=== PATIENT | male | born 1955 | race Caucasian/White ===

== ENCOUNTER → 2017-10-20 08:11 | Outpatient (CLI) | payer BC, SELFPAY ==
[2017-10-20 09:27] LABS: Add Manual Diff / Slide Review NO; Basophils Percent Auto 1.4 % (0-2); Eosinophils Percent Auto 6.3 % (2-4); Hematocrit 46.4 % (41-53); Hemoglobin 15.9 g/dL (13.5-17.5); Mean Corpuscular HGB Conc 34.2 % (30-36); Mean Corpuscular Hemoglobin 30.6 PG (26-34); Mean Corpuscular Volume 89.3 fL (80-100); Monocytes Percent Auto 10.1 % (3-14); Neutrophils Absolute Auto 2900 /uL (3000-5900); Neutrophils Percent Auto 50.2 % (50-75); Platelet Count 211 X10^3/uL (150-400); Red Blood Cell Count 5.19 X10^6/uL (4.5-5.9); Red Cell Distribution Width 12.6 % (11.6-14.8); White Blood Cell Count 5.7 X10^3/uL (4.5-11.0)
[2017-10-20 09:49] LABS: Alanine Aminotransferase 27 IU/L (21-72); Albumin 4.2 g/dL (3.5-5.0); Albumin Globulin Ratio 1.3 (1.0-2.8); Alkaline Phosphatase 55 U/L (38-126); Aspartate Aminotransferase 25 IU/L (17-59); BUN Creatinine Ratio 13.3 (6-22); Bilirubin Total 0.6 mg/dL (0.2-1.3); Calcium 9.4 mg/dL (8.4-10.2); Cholesterol 210 mg/dL (140-199); Estimated Glomerular Filt Rate > 60.0 mL/min (>60); Globulin 3.2 g/dL (1.7-4.1); Glucose 97 mg/dL (80-110); HDL Cholesterol 41 mg/dL (40-60); HEMOLYSIS < 15 (0-50); LDL Cholesterol Calculated 144 mg/dL (<100); Potassium 4.4 mmol/L (3.4-5.1); Sodium 144 mmol/L (137-145); Total Protein 7.4 g/dL (6.3-8.2); Triglycerides 124 mg/dL (35-150)
[2017-10-20 10:14] LABS: Prostate Specific Antigen Scrn 1.66 ng/mL (0.1-4.0)
[2017-10-20 10:39] LABS: TSH w/ Reflex to FT4 3.79 uIU/mL (0.47-4.68)
== END ==
PROVIDERS: PCP Internal Medicine; Visit Provider Internal Medicine
DX: E78.5 Hyperlipidemia, unspecified (principal); N40.0 Benign prostatic hyperplasia without lower urinary tract symptoms; Z12.5 Encounter for screening for malignant neoplasm of prostate; N52.9 Male erectile dysfunction, unspecified
CPT/HCPCS: 36415; 80053; 80061; 84443; 85025; G0103

== ENCOUNTER → 2018-01-16 07:22 | Outpatient (CLI) | payer BC, MEDICARE, SELFPAY ==
[2018-01-16 08:23] LABS: Alanine Aminotransferase 29 IU/L (21-72); Aspartate Aminotransferase 27 IU/L (17-59); Cholesterol 199 mg/dL (140-199); HDL Cholesterol 44 mg/dL (40-60); LDL Cholesterol Calculated 127 mg/dL (<100); Triglycerides 141 mg/dL (35-150)
== END ==
PROVIDERS: Family Provider Internal Medicine; PCP Internal Medicine; Visit Provider Internal Medicine
DX: E78.5 Hyperlipidemia, unspecified (principal)
CPT/HCPCS: 36415; 80061; 84450; 84460

== ENCOUNTER → 2019-02-15 10:53 | Outpatient (CLI) | payer MEDICARE, OTHER, SELFPAY ==
--- NOTE | 2019-03-12 16:15 | P.HOLT.S_ITS ---
Review Scheduling Coordinator Report Referral & Results Date Patient Seen: 02/15/19 Requesting provider: Glenys Dacosta Indication: Palpitations Duration of monitoring (days): 14 Diary information: There were no patient diary entries or patient triggered events identified Data: Minimum heart rate identified was 40 beats per minute at 02:01 on 02/27/2019 Maximum sinus heart rate was 146 beats per minute at 14:54 on 02/19/2019 Maximum overall heart rate was 182 beats per minute at 19:11 on 02/25/2019 during a 5 beat run of SVT Less than 1% of identified beats were either ventricular or supraventricular ectopic in origin There were 5 runs of supraventricular tachycardia or atrial tachycardia the longest of which was 7 beats at a rate of 143 beats per minute suggesting more atrial tachycardia than SVT Impression: No clear etiology for palpitations defined on this study Occasional bursts of supraventricular dysrhythmia as above Clinical correlation suggested
== END ==
PROVIDERS: Family Provider Internal Medicine; PCP Internal Medicine; Visit Provider Internal Medicine
DX: R00.2 Palpitations (principal)
CPT/HCPCS: 0296T; 0298T

== ENCOUNTER 2019-05-13 13:40 | Day surgery (SDC) | payer MEDICARE, OTHER, SELFPAY ==
[2019-05-13 14:09] VITALS: BP 141/99; PULSE 69; RESP 16; TEMP 36.1; O2SAT 95; BMI 26.4
[2019-05-13] MEDS: SODIUM CHLORIDE 0.9% 1,000 ML 200 ML IV (14:21)
--- NOTE | 2019-05-13 14:24 | PM.HP.1 ---
History of Present Illness History of Present Illness Date Patient Seen: 05/13/19 Time Patient Seen: 14:24 Chief complaint: [id number] Colonoscopy Narrative: Patient presents for colorectal screening. They had a prior colonoscopy 5 years ago that was significant for adenomatous polyps.. No personal or family history of colon cancer. On further history denies any recent gastrointestinal symptoms. No nausea, vomiting, abdominal pain, loss of appetite, unexplained weight loss, change in bowel habits, diarrhea, constipation, melena, hematochezia, or bright red blood per rectum. Patient History Medical History Chicken pox (Resolved) Chronic back pain (Chronic ~1999) Colon polyps (Chronic) Foot pain (Chronic ~2003) Hearing loss (Chronic ~2003) Seasonal allergies (Chronic) Snoring (Chronic) Tinnitus (Chronic ~2007) Surgical History Anesthesia (Resolved) Status post knee surgery (~1988) Family & Social History Family History Father Diabetes mellitus Congestive heart failure Mother Age: 89 Hypertension Social History: household members spouse,friend(s) Tobacco & Substance use: Smoking Status Former smoker Meds Home Medications and Allergies Home Medications Medication Instructions Recorded Confirmed Type Fish Oil (#FISH OIL) 1 iu PO Q DAY #0 01/21/11 02/24/19 History ASPIRIN (#ASPIRIN E.C.) 325 mg PO #0 10/14/11 02/24/19 History sildenafil 100 mg tablet 100 mg PO ONCE #10 tab 10/21/17 02/24/19 Rx tamsulosin 0.4 mg capsule 0.4 mg PO DAILY #90 cap 03/04/18 02/24/19 Rx zolpidem 10 mg tablet 10 mg PO ONCE #1 tab 02/24/19 02/24/19 Rx Allergies Allergy/AdvReac Type Severity Reaction Status Date / Time atorvastatin [ATORVASTATIN] Allergy Unknown Verified 05/13/19 13:55 ANTIHISTAMINE DRUG Allergy Mild Uncoded 05/13/19 13:55 Review of Systems Review of Systems Narrative: A complete review of systems is negative except as noted in the HPI Exam Vital Signs (past 8 hours): - 05/13/19 14:09 Temperature 96.9 F L Pulse Rate 69 Respiratory Rate 16 Blood Pressure 141/99 H Pulse Oximetry 95 Oxygen Delivery Method Room Air Narrative Exam Narrative: General-no acute distress, well nourished HEENT-moist mucous membranes, no scleral icterus Neck-supple, no lymphadenopathy Chest- non labored respirations, clear to auscultation bilaterally Cardiac-regular rate no peripheral edema Abdomen-soft, nontender, non distended Extremities-warm, well perfused Neurological-alert and oriented, no focal deficits Assessment & Plan Assessment & Plan narrative: The patient requires colorectal screening and colonoscopy is recommended. Technical details were discussed. Risks, benefits, alternatives explained. Risks including but not limited to myocardial infarction, aspiration, bleeding, pain, missed lesion, incomplete examination, need for further radiographic studies, colonic perforation, and need for major abdominal surgery were discussed. All questions were answered to their satisfaction, and they are in agreement with this plan.
[2019-05-13] MEDS: fentaNYL 250 MCG/5 ML INJ IV (14:25)
[2019-05-13] MEDS: MIDAZOLAM 5 MG/5 ML VIAL IV (14:25)
--- NOTE | 2019-05-13 14:54 | PM.OP.ENDO ---
Operative Date/Time/Diagnoses Date of procedure: 05/13/19 Time of procedure: 14:54 Pre-op diagnosis: Screening colonoscopy Post-op diagnosis: same Procedure & Clinicians Study performed: Colonoscopy Same procedure as scheduled: Yes Indications: This is a 64-year-old male with a history of adenomatous polyps last colonoscopy 5 years ago presents for routine screening. Surgeon: Frank Whitt Procedure Notes SCOAP/Timeout: Performed Procedure in detail: Patient placed in left lateral decubitus position. Time out was performed. Procedural sedation was administered with Versed and Fentanyl. A rectal exam demonstrated no external hemorrhoids no internal masses. Colonoscopy scope was placed into the rectum and advanced through the colon to the cecum. The ileocecal valve was identified. The scope was then slowly withdrawn examining colon thoroughly in all directions. The colonoscopy was notable for the following 1. Sigmoid diverticulosis 2. Grade 1 internal hemorrhoids 3. Quality of prep moderate Scope withdrawal time: 6 Sedation minutes: 16 Findings: diverticulosis and internal hemorrhoids Specimen(s): none sent Complications: none Impression: Diverticulosis Post-procedure Recommendations: Colonscopy in 10 years Disposition: same day surgery
[2019-05-13 14:59] VITALS: BP 138/81; PULSE 69; RESP 11; TEMP 37.2; O2SAT 96
[2019-05-13 15:04] VITALS: BP 133/82; PULSE 73; RESP 21; O2SAT 94
[2019-05-13 15:09] VITALS: BP 123/76; PULSE 70; RESP 14; TEMP 36.5; O2SAT 96
[2019-05-13 15:23] VITALS: BP 123/79; PULSE 61; RESP 16; TEMP 36.4; O2SAT 97
== END 2019-05-13 15:32 | disposition home or self-care (01) ==
PROVIDERS: PCP Internal Medicine; Visit Provider Surgery
PROC: 0DJD8ZZ Inspection of Lower Intestinal Tract, Via Natural or Artificial Opening Endoscopic (ICD-10-PCS; CPT 45378; principal; 2019-05-13 14:45)
DX: Z12.11 Encounter for screening for malignant neoplasm of colon (principal); Z86.010 Personal history of colon polyps; K57.30 Diverticulosis of large intestine without perforation or abscess without bleeding; K64.0 First degree hemorrhoids
CPT/HCPCS: G0105; 99152; J2250; J3010

== ENCOUNTER → 2020-03-16 12:45 | Outpatient (CLI) | payer MEDICARE, OTHER, SELFPAY ==
--- NOTE | 2020-03-16 | DI.MRI.S_ITS ---
PROCEDURE: MR KNEE LT WO CON INDICATIONS: LEFT KNEE PAIN TECHNIQUE: Noncontrast sagittal PD fast spin echo and T2 fast spin echo with fat saturation, sagittal 3-D FLASH with fat saturation; coronal T1 spin echo and PD fast spin echo with fat saturation, and axial PD fast spin echo with fat saturation through the knee. COMPARISON: [facility] [place], [place], XR KNEE [facility] LT, 03/09/2020, 13:42. FINDINGS: Image quality: Excellent. Menisci: There is amorphous and linear high signal intensity within the medial meniscal body and posterior horn, demonstrating inferior articular surface extension. Vague linear oblique high signal intensity traverses the posterior horn lateral meniscus, demonstrating inferior articular surface extension, indicating subtle oblique tearing. Cruciate ligaments: The anterior cruciate ligament graft and posterior cruciate ligaments appear intact. Medial structures: The medial collateral ligament appears intact. Visualized portions of the pes anserinus tendons appear normal. No abnormal bursal fluid. Lateral structures: The lateral collateral ligament demonstrates mild T2 signal elevation at the femoral origin. The long and short heads of the biceps femoris tendon appear intact. The popliteus tendon appears normal. Iliotibial band appears normal. Anterior structures: The quadriceps and patellar tendons appear intact. Moderate T2 signal elevation within the patellar tendon at the patellar insertion. Moderate T2 signal elevation within the quadriceps tendon at the patellar insertion site. Patellar alignment is normal. No femoral trochlear dysplasia or ventral trochlear prominence. No edema in the infrapatellar fat pad. Bones and cartilage: No bone marrow contusions or fractures. Ligamentous anchors within the distal femur and proximal tibia. Moderate degenerative marrow edema within the posterior weight-bearing aspect of the medial tibial plateau. Subchondral cysts with mild surrounding degenerative marrow edema within the patellar apex. Moderate tricompartmental periarticular osteophyte formation. Moderate articular cartilage loss diffusely overlies the weight-bearing aspects of the medial femoral condyle and medial tibial plateau. Mild articular cartilage loss overlies the weight-bearing aspects of the lateral femoral condyle and lateral tibial plateau. Moderate articular cartilage loss overlies the medial and lateral patellar facets with superimposed high-grade articular cartilage loss overlying the patellar apex. Joint space: There is physiologic knee joint fluid. No Diaz's cyst. Normal appearing synovial plicae are incidentally noted. IMPRESSION: 1. Medial and lateral meniscal tearing. 2. Tricompartmental osteoarthritis with associated articular cartilage loss. 3. Intact ACL graft. 4. Quadriceps tendinopathy. 5. Patellar tendinitis. 6. Low-grade partial thickness lateral collateral ligament tear. Dictated by: Rosi Walden M.D. on 03/16/2020 at 14:02 Approved by: Rosi Walden M.D. on 03/16/2020 at 14:12
== END ==
PROVIDERS: PCP Internal Medicine; Referring Provider Internal Medicine; Visit Provider Orthopaedic Surgery
DX: S83.282A Other tear of lateral meniscus, current injury, left knee, initial encounter (principal); S83.242A Other tear of medial meniscus, current injury, left knee, initial encounter; M17.12 Unilateral primary osteoarthritis, left knee; M76.52 Patellar tendinitis, left knee
CPT/HCPCS: 73721

== ENCOUNTER 2020-04-20 12:07 | Emergency (ER) | payer MEDICARE, OTHER, SELFPAY ==
[2020-04-20 12:22] VITALS: BP 130/85; PULSE 82; RESP 14; O2SAT 96; BMI 27.5
--- NOTE | 2020-04-20 12:40 | ED.SYNCOPE ---
HPI - Syncope <MALIA Paige - Last Filed: 04/20/20 16:08> General Chief Complaint: Syncope Stated Complaint: Bleeding head wound x1 hour Time Seen by Provider: 04/20/20 12:21 Source: patient Mode of arrival: Ambulatory Limitations: no limitations History of Present Illness HPI narrative: The patient is a 65-year-old male former smoker with high cholesterol who presents with a chief complaint of a ground level fall/syncope. He states he got out of his hot tub this morning and felt very woozy and was at least pre syncopal if not syncopal. However he thinks he remembers everything, states his vision was normal. He fell, hitting his head on cement he states he has a laceration to the back of his head. Does not know when previous tetanus was. He states he has gotten woozy before getting out of the hot tub. He denies any neck or back pain. Denies any chest pain or shortness of breath. States that this has happened before while getting out of of the hot tub. Has not started any new medications. Related Data Home Medications Medication Instructions Recorded Confirmed Fish Oil (#FISH OIL) 1 iu PO Q DAY #0 01/21/11 02/24/19 ASPIRIN (#ASPIRIN E.C.) 325 mg PO #0 10/14/11 02/24/19 Previous Rx's Medication Instructions Recorded sildenafil 100 mg tablet 100 mg PO ONCE #10 tab 10/21/17 tamsulosin 0.4 mg capsule 0.4 mg PO DAILY #90 cap 03/04/18 zolpidem 10 mg tablet 10 mg PO ONCE #1 tab 02/24/19 Allergies Allergy/AdvReac Type Severity Reaction Status Date / Time atorvastatin [ATORVASTATIN] Allergy Unknown Verified 04/20/20 12:22 ANTIHISTAMINE DRUG Allergy Mild Uncoded 05/13/19 13:55 Review of Systems <MALIA Paige - Last Filed: 04/20/20 16:08> Review of Systems Narrative: GENERAL: Denies chills, fatigue, malaise, fever, sweats. HEENT: Denies sinus pain, ear pain, sore throat, difficulty swallowing, dizziness. RESPIRATORY: Denies dyspnea, cough, wheezing, hemoptysis, sputum. CARDIOVASCULAR: See HPI GASTROINTESTINAL: Denies nausea, vomiting, abdominal pain, diarrhea, constipation, melena. : Denies dysuria, frequency, incontinence, hematuria, urinary retention. MUSCULOSKELETAL: denies weakness, joint pain, or bony pain SKIN: See HPI NEUROLOGIC: See HPI PSYCHIATRIC: No concerning psychosocial issues. 12 point review of systems is negative except for those stated above Patient History <MLAIA Paige - Last Filed: 04/20/20 16:08> Medical History Chicken pox Chronic back pain (~1999) Colon polyps Foot pain (~2003) Hearing loss (~2003) Obstructive sleep apnea Seasonal allergies Snoring Tinnitus (~2007) Surgical History Anesthesia Status post knee surgery (~1988) Family History Father Diabetes mellitus Congestive heart failure Mother Age: 90 Hypertension Social History household members: spouse and friend(s) Smoking Status: Former smoker Smoking Status: Former smoker alcohol intake frequency: holidays/special occasions only Substance Use Type: does not use Exam <MALIA Paige - Last Filed: 04/20/20 16:08> Narrative Exam Narrative: GENERAL: This is a well-nourished, well-developed patient, in no acute distress HEAD: Atraumatic. Normocephalic. No temporal or scalp tenderness. EYES: Pupils equal round and reactive. Extraocular motions intact. No scleral icterus. No injection or drainage. ENT: Nose without bleeding, purulent drainage or septal hematoma. Wearing a mask. Airway patent. NECK: Trachea midline. No JVD or lymphadenopathy. Supple, nontender, no meningeal signs. CARDIOVASCULAR: Regular rate and rhythm RESPIRATORY: Clear to auscultation. Breath sounds equal bilaterally. No wheezes, rales, or rhonchi. No cough. No increased respiratory effort. No accessory muscle use GASTROINTESTINAL: Abdomen soft, non-tender, nondistended. No hepato-splenomegaly, or palpable masses. No guarding. EXTREMITIES: No clubbing, cyanosis, or edema. No joint tenderness, effusion, or edema noted. BACK: CT and L-spine aren ontender without deformity or crepitance. No flank tenderness. No palpable step-offs or deformities. NEURO: AOx3. SKIN: 5 cm linear laceration noted on back of head. Oozing blood. No obvious muscle or tendon involvement. No periorbital ecchymosis. No Carmona signs Initial Vital Signs Initial Vital Signs: Vital Signs Pulse Rate 82 04/20/20 12:22 Respiratory Rate 14 04/20/20 12:22 Blood Pressure 130/85 04/20/20 12:22 Pulse Oximetry 96 04/20/20 12:22 <Dayanara Truong DO - Last Filed: 04/21/20 07:21> Initial Vital Signs Initial Vital Signs: Vital Signs Pulse Rate 82 04/20/20 12:22 Respiratory Rate 14 04/20/20 12:22 Blood Pressure 130/85 04/20/20 12:22 Pulse Oximetry 96 04/20/20 12:22 Procedures <MALIA Paige - Last Filed: 04/20/20 16:08> Laceration Repair Laceration 1: Site: scalp Size (cm): 4 Description: linear Depth: simple, single layer Local Anesthetic: other anesthetic (Lidocaine cream) Pre-repair: wound explored, irrigated extensively (Flushed with sterile saline, cleansed with Hibiclens) and deep structures intact Skin layer closed with: isis (6) Scores <MALIA Paige - Last Filed: 04/20/20 16:08> [place] CT Head Rule Age <16 years old: No Patient on blood thinners: No Seizure after injury: No Exclusion: Patient NOT Excluded, Proceed to next steps GCS < 15 at 2 hr post trauma: No Suspected open or depressed skull fracture: No Any sign of basilar skull fracture (hemotympanum, raccoon eyes, Carmona's sign, CSF jer-/rhinorrhea): No Two or more episodes of vomiting: No Age greater or equal to 65 years: Yes Retrograde amnesia to the event greater or equal to 30 min: No Dangerous Mechanism (pedestrian vs. mv, occupant ejected from mv, fall from >3 ft or > 5 stairs): No Recommendation: Consider CT. The [place] Head CT Rule cannot rule out need for Imaging. GCS Soo coma scale eye opening: Spontaneous [place] coma scale verbal response: Orientated Soo coma scale motor response: Obey commands [place] coma scale total score: 15 Nexus Score for C-Spine Focal Neurologic deficit present: No Midline spinal tenderness present: No Altered level of conciousness present: No Intoxication present: No Distracting Injury Present: No Nexus Criteria for C-spine: 0 Course <Ksenia FerraraJANIEP-BC - Last Filed: 04/20/20 16:08> Orders Ordered: Discontinued Medications Bacitracin (Bacitracin Oint 0.9 Gm Pckt) 1 applic TOP NOW ONE Stop: 04/20/20 15:03 Last Admin: 04/20/20 15:17 Dose: 1 applic Documented by: BREANA Diphtheria/Tetanus/Acell Pertussis (Tet,Diph,Pertuss(Acell),Vac/Pf 0.5 Ml Syringe) 0.5 ml IM .ONCE ONE Stop: 04/20/20 13:01 Last Admin: 04/20/20 14:18 Dose: 0.5 ml Documented by: BREANA Sodium Chloride (Normal Saline 0.9%) 1,000 mls @ 150 mls/hr IV CONT ADENIKE Sodium Chloride (Normal Saline 0.9%) 1,000 mls @ 1,000 mls/hr IV BOLUS PRN PRN Reason: Fluid replacement Last Admin: 04/20/20 13:59 Dose: 1,000 mls/hr Documented by: ADRIAN Lidocaine/Prilocaine (Lidocaine/Prilocaine 5 Gm) 5 gm TOP NOW ONE Stop: 04/20/20 13:01 Last Admin: 04/20/20 14:18 Dose: 5 gm Documented by: BREANA Vital Signs Vital signs: Vital Signs - 8 hr 04/20/20 12:22 04/20/20 13:09 04/20/20 14:38 Pulse Rate 82 70 57 L Pulse Rate [Orthostatic Lying] Pulse Rate [Orthostatic Sitting] Pulse Rate [Orthostatic Standing] Respiratory Rate 14 22 17 Blood Pressure 130/85 124/81 124/82 Blood Pressure [Orthostatic Lying] Blood Pressure [Orthostatic Sitting] Blood Pressure [Orthostatic Standing] Pulse Oximetry 96 97 97 04/20/20 15:02 04/20/20 15:20 Pulse Rate 52 L Pulse Rate [Orthostatic Lying] 55 L Pulse Rate [Orthostatic Sitting] 71 Pulse Rate [Orthostatic Standing] 64 Respiratory Rate 18 Blood Pressure 131/81 Blood Pressure [Orthostatic Lying] 131/78 Blood Pressure [Orthostatic Sitting] 127/81 Blood Pressure [Orthostatic Standing] 147/90 H Pulse Oximetry 99 <Dayanara Truong DO - Last Filed: 04/21/20 07:21> Orders Ordered: Discontinued Medications Bacitracin (Bacitracin Oint 0.9 Gm Pckt) 1 applic TOP NOW ONE Stop: 04/20/20 15:03 Last Admin: 04/20/20 15:17 Dose: 1 applic Documented by: BREANA Diphtheria/Tetanus/Acell Pertussis (Tet,Diph,Pertuss(Acell),Vac/Pf 0.5 Ml Syringe) 0.5 ml IM .ONCE ONE Stop: 04/20/20 13:01 Last Admin: 04/20/20 14:18 Dose: 0.5 ml Documented by: BREANA Sodium Chloride (Normal Saline 0.9%) 1,000 mls @ 150 mls/hr IV CONT ADENIKE Sodium Chloride (Normal Saline 0.9%) 1,000 mls @ 1,000 mls/hr IV BOLUS PRN PRN Reason: Fluid replacement Last Admin: 04/20/20 13:59 Dose: 1,000 mls/hr Documented by: ADRIAN Lidocaine/Prilocaine (Lidocaine/Prilocaine 5 Gm) 5 gm TOP NOW ONE Stop: 04/20/20 13:01 Last Admin: 04/20/20 14:18 Dose: 5 gm Documented by: BREANA Vital Signs Vital signs: Vital Signs - 8 hr 04/20/20 12:22 04/20/20 13:09 04/20/20 14:38 Pulse Rate 82 70 57 L Pulse Rate [Orthostatic Lying] Pulse Rate [Orthostatic Sitting] Pulse Rate [Orthostatic Standing] Respiratory Rate 14 22 17 Blood Pressure 130/85 124/81 124/82 Blood Pressure [Orthostatic Lying] Blood Pressure [Orthostatic Sitting] Blood Pressure [Orthostatic Standing] Pulse Oximetry 96 97 97 04/20/20 15:02 04/20/20 15:20 Pulse Rate 52 L Pulse Rate [Orthostatic Lying] 55 L Pulse Rate [Orthostatic Sitting] 71 Pulse Rate [Orthostatic Standing] 64 Respiratory Rate 18 Blood Pressure 131/81 Blood Pressure [Orthostatic Lying] 131/78 Blood Pressure [Orthostatic Sitting] 127/81 Blood Pressure [Orthostatic Standing] 147/90 H Pulse Oximetry 99 MDM - Syncope <Ksenia FerraraJANIEP- - Last Filed: 04/20/20 16:08> Lab Data Attestation: I reviewed the patient's lab results. Result diagrams: 04/20/20 13:17 04/20/20 13:17 Labs: Lab Results 04/20/20 04/20/20 Range/Units 13:17 13:17 WBC 10.0 (4.5-11.0) X10^3/uL RBC 4.92 (4.5-5.9) X10^6/uL Hgb 14.7 (13.5-17.5) g/dL Hct 44.0 (41-53) % MCV 89.4 (80-100) fL MCH 30.0 (26-34) PG MCHC 33.5 (30-36) % RDW 12.4 (11.6-14.8) % Plt Count 271 (150-400) X10^3/uL Neut % (Auto) 78.3 H (50-75) % Lymph % (Auto) 9.8 L (25-40) % [place] % (Auto) 7.9 (3-14) % Eos % (Auto) 3.3 (2-4) % Baso % (Auto) 0.7 (0-2) % Neut # (Auto) 7800 H (4075-4143) /uL Lymph # (Auto) 1000 L (1724-8534) /uL [place] # (Auto) 800 (0-900) /uL Eos # (Auto) 300 (0-450) /uL Baso # (Auto) 100 (0-100) /uL Sodium 137 (137-145) mmol/L Potassium 4.3 (3.4-5.1) mmol/L Chloride 106 (98-107) mmol/L Carbon Dioxide 27 (22-32) mmol/L BUN 19 (9-20) mg/dL Creatinine 0.82 (0.66-1.25) mg/dL Estimated GFR > 60.0 (>60) mL/min BUN/Creatinine Ratio 23.2 H (6-22) Glucose 120 H (80-110) mg/dL Calcium 9.4 (8.4-10.2) mg/dL Total Bilirubin 0.5 (0.2-1.3) mg/dL AST 32 (17-59) IU/L ALT 31 (<50) IU/L Alkaline Phosphatase 71 (38-126) U/L Total Creatine Kinase 48 L (55-170) U/L CK-MB (CK-2) TNP CK-MB (CK-2) Rel Index TNP Troponin I < 0.012 (0.01-0.034) ng/mL Total Protein 7.4 (6.3-8.2) g/dL Albumin 4.0 (3.5-5.0) g/dL Globulin 3.4 (1.7-4.1) g/dL Albumin/Globulin Ratio 1.2 (1.0-2.8) Point of Care Testing Glucose POC 122 Urine Dip Bedside Urine Glucose Negative Bedside Urine Bilirubin - Negative Bedside Urine Ketone - Negative Urine Specific [place] 1.030 Bedside Urine Occult Blood - Negative Bedside Urine pH 6.0 Bedside Urine Protein - Negative Bedside Urine Urobilinogen - Negative Bedside Urine Nitrite - Negative Bedside Urine Leukocytes - Negative Esterase Imaging Data CT scan - head: Radiologist's Impression: [address] [place] [id number] Scan ReportSigned Patient: Abimael Pedro WMR#: [id number]: 1955cct:[id number]/Sex: 65 / MDate of Service: 04/20/20Loc: EDAccession Number: [id number] Procedure: CT head/brain wo con Ordering Provider: Ksenia Ferrara [facility] PROCEDURE: CT HEAD/BRAIN WO CON INDICATIONS: glf/ ? loc TECHNIQUE: Noncontrast 4.5 mm thick angled axial sections acquired from the foramen magnum to the vertex, with coronal and sagittal reformats. For radiation dose reduction, the following was used: automated exposure control, adjustment of mA and/or kV according to patient size. COMPARISON: None. FINDINGS: Image quality: Excellent. CSF spaces: Basal cisterns are patent. A posterior fossa arachnoid cyst can be seen posteriorly. The ventricles are symmetric in size and shape. Brain: No intracranial bleeds or masses. There is cerebral volume loss for age, with resultant ventricular and sulcal prominence. There are periventricular and deep white matter chronic small vessel ischemic changes. There is intracranial internal carotid artery atherosclerosis. Skull and face: Soft tissue right parietal laceration can be seen, with a scalp hematoma. No underlying calvarial fracture can be seen. Calvarium and visualized facial bones appear intact, without suspicious lesions. Sinuses: Visualized sinuses and mastoids are clear. IMPRESSION: There is a right parietal scalp hematoma with laceration. No associated fracture can be seen. No acute intracranial hemorrhage is seen. Posterior fossa arachnoid cyst incidentally noted. Dictated by: Petr Frey M.D. on 04/20/2020 at 12:05 Approved by: Petr Frey M.D. on 04/20/2020 at 12:06 Chest x-ray: Radiologist's Impression: [address] [place] [id number] ReportSigned Patient: Abimael Pedro WMR#: [id number]: 3Acct:[id number]/Sex: 65 / MDate of Service: 04/20/20Loc: EDAccession Number: [id number] Procedure: XR chest 1V Ordering Provider: Ksenia Ferrara PROCEDURE: XR CHEST 1V INDICATIONS: glf, syncope TECHNIQUE: One view of the chest was acquired. COMPARISON: [facility], XR CXR 2 VIEW, 06/20/1992, 4:12. FINDINGS: Surgical changes and devices: None. Lungs and pleura: Lungs are clear. No pleural effusions or pneumothorax. Mediastinum: Mediastinal contours appear normal. Heart size is normal. Bones and chest wall: No suspicious bony lesions. Overlying soft tissues appear unremarkable. IMPRESSION: No acute cardiopulmonary disease process. Dictated by: Ria Blackwell MD, PhD on 04/20/2020 at 13:32 Approved by: Ria Blackwell MD, PhD on 04/20/2020 at 13:33 ECG Data Attestation: I personally reviewed and interpreted this ECG as follows: Interpretation: Sinus rhythm. Ventricular rate 69. P.r. interval 188. QRS 96.viewed by Dr Alexi BLOOD Narrative Medical decision making narrative: The patient is a 65-year-old male with a syncopal event after getting out of a hot tub. He has normal EKG, negative troponin, negative head CT. He is not orthostatic. Is able to ambulate, and is requesting to go home after his laceration was repaired as per procedural note. Patient tolerated isis well. Discussed at length monitoring for signs symptoms of infection, follow-up with primary care provider, follow-up with staple removal. Discussed not putting head into dirty water. Discussed going back to ER for acute concerns. Discussed possibility of 2nd troponin, though patient would rather leave and denies any chest pain or shortness of breath. Patient has no questions or concerns upon discharge and states understanding return precautions as well as follow-up care. <Dayanara Truong, DO - Last Filed: 04/21/20 07:21> Lab Data Labs: Lab Results 04/20/20 04/20/20 Range/Units 13:17 13:17 WBC 10.0 (4.5-11.0) X10^3/uL RBC 4.92 (4.5-5.9) X10^6/uL Hgb 14.7 (13.5-17.5) g/dL Hct 44.0 (41-53) % MCV 89.4 (80-100) fL MCH 30.0 (26-34) PG MCHC 33.5 (30-36) % RDW 12.4 (11.6-14.8) % Plt Count 271 (150-400) X10^3/uL Neut % (Auto) 78.3 H (50-75) % Lymph % (Auto) 9.8 L (25-40) % [place] % (Auto) 7.9 (3-14) % Eos % (Auto) 3.3 (2-4) % Baso % (Auto) 0.7 (0-2) % Neut # (Auto) 7800 H (0061-4254) /uL Lymph # (Auto) 1000 L (6284-8679) /uL [place] # (Auto) 800 (0-900) /uL Eos # (Auto) 300 (0-450) /uL Baso # (Auto) 100 (0-100) /uL Sodium 137 (137-145) mmol/L Potassium 4.3 (3.4-5.1) mmol/L Chloride 106 (98-107) mmol/L Carbon Dioxide 27 (22-32) mmol/L BUN 19 (9-20) mg/dL Creatinine 0.82 (0.66-1.25) mg/dL Estimated GFR > 60.0 (>60) mL/min BUN/Creatinine Ratio 23.2 H (6-22) Glucose 120 H (80-110) mg/dL Calcium 9.4 (8.4-10.2) mg/dL Total Bilirubin 0.5 (0.2-1.3) mg/dL AST 32 (17-59) IU/L ALT 31 (<50) IU/L Alkaline Phosphatase 71 (38-126) U/L Total Creatine Kinase 48 L (55-170) U/L CK-MB (CK-2) TNP CK-MB (CK-2) Rel Index TNP Troponin I < 0.012 (0.01-0.034) ng/mL Total Protein 7.4 (6.3-8.2) g/dL Albumin 4.0 (3.5-5.0) g/dL Globulin 3.4 (1.7-4.1) g/dL Albumin/Globulin Ratio 1.2 (1.0-2.8) Point of Care Testing Glucose POC 122 Urine Dip Bedside Urine Glucose Negative Bedside Urine Bilirubin - Negative Bedside Urine Ketone - Negative Urine Specific [place] 1.030 Bedside Urine Occult Blood - Negative Bedside Urine pH 6.0 Bedside Urine Protein - Negative Bedside Urine Urobilinogen - Negative Bedside Urine Nitrite - Negative Bedside Urine Leukocytes - Negative Esterase Discharge Plan Departure Patient Disposition: Home Clinical Impression: Laceration Syncope Qualifiers: Syncope type: unspecified Qualified Code(s): R55 - Syncope and collapse Instructions: DI for Syncope in Adults (Fainting), DI for Laceration Repair -- [place] Activity Restrictions/Additional Instructions: A thank you for trusting us with your care today. Your evaluation came back well in the emergency department. As discussed, please follow-up with primary care provider in the next few days. Please follow-up for staple removal in about 10 days. Please monitor for signs and symptoms of infection such as extending redness and purulent drainage. Please do not put your head into dirty water. Please do not use your hot tub. Today I believe it is likely that you got lightheaded getting out of the hot tub due to the vasodilation effects of the hot tub. Please do not get back in the hot tub until you follow-up with primary care provider. Please rest and push fluids. As discussed, please come back to the ER for any acute concerns Prescriptions: No Action Fish Oil (#FISH OIL) 1 iu PO Q DAY Qty: 0 RF: 0 ASPIRIN (#ASPIRIN E.C.) 325 mg PO Qty: 0 RF: 0 tamsulosin [Flomax] 0.4 mg capsule 0.4 mg PO DAILY Qty: 90 RF: 3 sildenafil 100 mg tablet 100 mg PO ONCE Qty: 10 RF: 0 zolpidem 10 mg tablet 10 mg PO ONCE Qty: 1 RF: 0 Referrals: Glenys Dacosta ARNP [Primary Care Provider] - <Dayanara Truong DO - Last Filed: 04/21/20 07:21> Cosign ED Attending Cosignature Attestation: I was immediately available in the department for consultation. Documentation has been reviewed. I agree with assessment and plan.
--- NOTE | 2020-04-20 12:43 | DI.RAD.S_ITS ---
PROCEDURE: XR CHEST 1V INDICATIONS: glf, syncope TECHNIQUE: One view of the chest was acquired. COMPARISON: [facility], [place], XR CXR 2 VIEW, 06/20/1992, 4:12. FINDINGS: Surgical changes and devices: None. Lungs and pleura: Lungs are clear. No pleural effusions or pneumothorax. Mediastinum: Mediastinal contours appear normal. Heart size is normal. Bones and chest wall: No suspicious bony lesions. Overlying soft tissues appear unremarkable. IMPRESSION: No acute cardiopulmonary disease process. Dictated by: Ria Blackwell MD, PhD on 04/20/2020 at 13:32 Approved by: Ria Blackwell MD, PhD on 04/20/2020 at 13:33
--- NOTE | 2020-04-20 12:52 | DI.CT.S_ITS ---
PROCEDURE: CT HEAD/BRAIN WO CON INDICATIONS: glf/ ? loc TECHNIQUE: Noncontrast 4.5 mm thick angled axial sections acquired from the foramen magnum to the vertex, with coronal and sagittal reformats. For radiation dose reduction, the following was used: automated exposure control, adjustment of mA and/or kV according to patient size. COMPARISON: None. FINDINGS: Image quality: Excellent. CSF spaces: Basal cisterns are patent. A posterior fossa arachnoid cyst can be seen posteriorly. The ventricles are symmetric in size and shape. Brain: No intracranial bleeds or masses. There is cerebral volume loss for age, with resultant ventricular and sulcal prominence. There are periventricular and deep white matter chronic small vessel ischemic changes. There is intracranial internal carotid artery atherosclerosis. Skull and face: Soft tissue right parietal laceration can be seen, with a scalp hematoma. No underlying calvarial fracture can be seen. Calvarium and visualized facial bones appear intact, without suspicious lesions. Sinuses: Visualized sinuses and mastoids are clear. IMPRESSION: There is a right parietal scalp hematoma with laceration. No associated fracture can be seen. No acute intracranial hemorrhage is seen. Posterior fossa arachnoid cyst incidentally noted. Dictated by: Petr Frey M.D. on 04/20/2020 at 12:05 Approved by: Petr Frey M.D. on 04/20/2020 at 12:06
[2020-04-20 13:09] VITALS: BP 124/81; PULSE 70; RESP 22; O2SAT 97
[2020-04-20 13:25] LABS: Add Manual Diff / Slide Review NO; Basophils Absolute Auto 100 /uL (0-100); Basophils Percent Auto 0.7 % (0-2); Eosinophils Absolute Auto 300 /uL (0-450); Eosinophils Percent Auto 3.3 % (2-4); Hemoglobin 14.7 g/dL (13.5-17.5); Lymphocytes Absolute Auto 1000 /uL (1100-4500); Lymphocytes Percent Auto 9.8 % (25-40); Mean Corpuscular HGB Conc 33.5 % (30-36); Mean Corpuscular Volume 89.4 fL (80-100); Monocytes Absolute Auto 800 /uL (0-900); Monocytes Percent Auto 7.9 % (3-14); Neutrophils Absolute Auto 7800 /uL (1500-7000); Neutrophils Percent Auto 78.3 % (50-75); Platelet Count 271 X10^3/uL (150-400); Red Blood Cell Count 4.92 X10^6/uL (4.5-5.9); Red Cell Distribution Width 12.4 % (11.6-14.8)
[2020-04-20 13:38] LABS: Alanine Aminotransferase 31 IU/L (<50); Albumin Globulin Ratio 1.2 (1.0-2.8); Alkaline Phosphatase 71 U/L (38-126); Aspartate Aminotransferase 32 IU/L (17-59); BUN Creatinine Ratio 23.2 (6-22); Bilirubin Total 0.5 mg/dL (0.2-1.3); Blood Urea Nitrogen 19 mg/dL (9-20); Calcium 9.4 mg/dL (8.4-10.2); Carbon Dioxide 27 mmol/L (22-32); Chloride 106 mmol/L (98-107); Creatine Kinase 48 U/L (55-170); Estimated Glomerular Filt Rate > 60.0 mL/min (>60); Globulin 3.4 g/dL (1.7-4.1); Glucose 120 mg/dL (80-110); HEMOLYSIS < 15 (0-50); Potassium 4.3 mmol/L (3.4-5.1); Sodium 137 mmol/L (137-145); Total Protein 7.4 g/dL (6.3-8.2)
[2020-04-20 13:49] LABS: Troponin I < 0.012 ng/mL (0.01-0.034)
[2020-04-20] MEDS: SODIUM CHLORIDE 0.9% 1,000 ML 1000 ML IV (13:59)
[2020-04-20] MEDS: LIDOCAINE/PRILOCAINE 5 GM TOP (14:18)
[2020-04-20] MEDS: TET,DIPH,PERTUSS(ACELL),VAC/PF 0.5 ML SYRINGE IM (14:18)
[2020-04-20 14:38] VITALS: BP 124/82; PULSE 57; RESP 17; O2SAT 97
[2020-04-20 15:02] VITALS: BP 127/81; BP 131/78; BP 147/90; PULSE 55; PULSE 64; PULSE 71
[2020-04-20] MEDS: BACITRACIN OINT 0.9 GM PCKT 1 APPLIC TOP (15:17)
[2020-04-20 15:20] VITALS: BP 131/81; PULSE 52; RESP 18; O2SAT 99
--- NOTE | 2020-05-04 14:38 | PC.NURSE ---
IV NS stopped and completed at 1530.
== END 2020-04-20 15:31 | disposition home or self-care (01) ==
PROVIDERS: Emergency Provider Nurse Practitioner Family; PCP Internal Medicine
DX: S01.01XA Laceration without foreign body of scalp, initial encounter (principal); R55 Syncope and collapse; W19.XXXA Unspecified fall, initial encounter; Z23 Encounter for immunization; R07.9 Chest pain, unspecified
CPT/HCPCS: 12002; 36415; 70450; 71045; 80053; 81003; 82550; 82962; 84484; 85025; 90471; 93005; 96360; 96361; 99283; 99284; STOP; 90715

== ENCOUNTER → 2020-05-04 09:21 | Outpatient (CLI) | payer MEDICARE, OTHER, SELFPAY ==
[2020-05-04 11:21] LABS: Alanine Aminotransferase 46 IU/L (<50); Albumin 3.9 g/dL (3.5-5.0); Albumin Globulin Ratio 1.3 (1.0-2.8); Alkaline Phosphatase 94 U/L (38-126); Aspartate Aminotransferase 38 IU/L (17-59); BUN Creatinine Ratio 22.7 (6-22); Bilirubin Total 0.5 mg/dL (0.2-1.3); Blood Urea Nitrogen 20 mg/dL (9-20); Calcium 9.3 mg/dL (8.4-10.2); Carbon Dioxide 31 mmol/L (22-32); Chloride 103 mmol/L (98-107); Cholesterol 184 mg/dL (140-199); Estimated Glomerular Filt Rate > 60.0 mL/min (>60); Globulin 3.1 g/dL (1.7-4.1); Glucose 91 mg/dL (80-110); HDL Cholesterol 39 mg/dL (40-60); HEMOLYSIS < 15 (0-50); LDL Cholesterol Calculated 123 mg/dL (<100); Potassium 4.5 mmol/L (3.4-5.1); Sodium 137 mmol/L (137-145); Triglycerides 108 mg/dL (35-150); VLDL Cholesterol Calculated 22 mg/dL (2-30)
[2020-05-04 11:43] LABS: Prostate Specific Antigen Scrn 1.38 ng/mL (0.1-4.0)
[2020-05-04 11:44] LABS: Thyroid Stimulating Hormone 3.06 uIU/mL (0.47-4.68)
[2020-05-04 12:02] LABS: Hep C Virus Ab w/Reflex Quant NEGATIVE s/c (NEGATIVE)
== END ==
PROVIDERS: PCP Internal Medicine; Referring Provider Internal Medicine; Visit Provider Internal Medicine
DX: Z79.899 Other long term (current) drug therapy (principal); E78.5 Hyperlipidemia, unspecified; Z11.59 Encounter for screening for other viral diseases; Z13.29 Encounter for screening for other suspected endocrine disorder; Z12.5 Encounter for screening for malignant neoplasm of prostate
CPT/HCPCS: 36415; 80053; 80061; 84443; 86803; G0103

== ENCOUNTER → 2020-07-12 09:39 | Outpatient (CLI) | payer MEDICARE, OTHER, SELFPAY ==
[2020-07-12 11:04] LABS: COVID19 -Nasal RAPID Negative (Negative)
== END ==
PROVIDERS: PCP Internal Medicine; Visit Provider Physician Assistant
DX: Z01.812 Encounter for preprocedural laboratory examination (principal); Z20.822 Contact with and (suspected) exposure to COVID-19
CPT/HCPCS: 87635; C9803

== ENCOUNTER → 2020-07-14 15:08 | Outpatient (CLI) | payer MEDICARE, OTHER, SELFPAY ==
--- NOTE | 2020-07-14 15:49 | PM.TREADMILL ---
Cardiac Stress Test Report Referral & Results Date Patient Seen: 07/14/20 Time Patient Seen: 15:49 Requesting provider: Glenys Dacosta Indication: palpitations, chest pain Rest ECG: sinus rhythm with nonspecific ST changes Procedure Note: Standard German protocol, 9:10, 9.9 METS Good exercise capacity, PATRICIA -20% Normal hemodynamic response to exercise No chest pain or anginal symptoms No significant ST changes at peak exercise No ectopy Impression: Normal exercise stress test Please note: Actual ECG tracings can be found in the PACS system.
--- NOTE | 2020-07-14 17:35 | DI.NM.S_ITS ---
DATE OF SERVICE: 07/14/2020 PROCEDURE PERFORMED: Exercise treadmill nonimaging stress test. ORDERING PROVIDER: APURVA Jacobson. INDICATIONS: The patient is a 65-year-old male with palpitations and atypical chest pain. FINDINGS: 1. The patient was able to exercise for 9 minutes and 10 seconds on a standard German protocol suggesting very good exercise capacity with an PATRICIA of -20%, achieving 10.1 METS. 2. The patient had a normal heart rate and blood pressure response to exercise, achieving a maximum heart rate of 146 BPM (95% of his predicted maximum). 3. He had no chest discomfort or anginal symptoms. 4. His resting ECG shows sinus rhythm with normal ST segments. There were no significant ST-segment shifts or arrhythmias. IMPRESSION: 1. Normal exercise treadmill study with no ECG evidence for ischemia. 2. Very good exercise capacity without angina or arrhythmias. MayelaAbimael lane - DANIELLE/prabha/sb doc#: [id number]/job#: [id number] dd: 07/14/2020 17:10:00 dt: 07/14/2020 17:29:00 DICTATING /COPIES TO: Kris Caruso MD COPIES MNE: CARTER;
== END ==
PROVIDERS: PCP Internal Medicine; Referring Provider Internal Medicine; Visit Provider Internal Medicine
DX: R07.89 Other chest pain (principal); R00.2 Palpitations; E78.5 Hyperlipidemia, unspecified; Z87.898 Personal history of other specified conditions
CPT/HCPCS: 93017

== ENCOUNTER → 2021-01-10 15:55 | Outpatient (CLI) | payer MEDICARE, OTHER, SELFPAY ==
--- NOTE | 2021-01-10 | DI.RAD.S_ITS ---
PROCEDURE: XR CHEST 2V INDICATIONS: CHRONIC COUGH, EXPOSURE TO INHALANT TOXIN FROM CPAP MACHINE TECHNIQUE: 2 views of the chest were acquired. COMPARISON: [facility], CR, XR CHEST 1V, 04/20/2020, 12:53. FINDINGS: Surgical changes and devices: None. Lungs and pleura: Lungs are clear. No pleural effusions or pneumothorax. Mediastinum: Bilateral hilar prominence may be vascular nature, suggesting possible pulmonary arterial hypertension. Heart size is normal. Bones and chest wall: No suspicious bony abnormalities. Soft tissues appear unremarkable. IMPRESSION: Bilateral pulmonary hilar prominence. Question pulmonary arterial hypertension. Consider CT chest with contrast for further evaluation. Dictated by: Master Collins M.D. on 01/10/2021 at 17:28 Approved by: Master Collins M.D. on 01/10/2021 at 17:38
== END ==
PROVIDERS: PCP Internal Medicine; Referring Provider Internal Medicine; Visit Provider Internal Medicine
DX: R05 Cough (principal); T65.91XA Toxic effect of unspecified substance, accidental (unintentional), initial encounter; X58.XXXA Exposure to other specified factors, initial encounter
CPT/HCPCS: 71046

== ENCOUNTER → 2021-01-22 10:40 | Outpatient (CLI) | payer MEDICARE, OTHER, SELFPAY ==
--- NOTE | 2021-01-22 | DI.CT.S_ITS ---
PROCEDURE: CT CHEST W CON INDICATIONS: Cough TECHNIQUE: After the administration of intravenous contrast, 5 mm thick sections acquired from the pulmonary apices to the posterior costophrenic angles. 1 mm axial lung, 5 mm thick coronal and sagittal reformats and 7 mm axial MIP were acquired. For radiation dose reduction, the following was used: automated exposure control, adjustment of mA and/or kV according to patient size. COMPARISON: None. FINDINGS: Image quality: Excellent. Lungs and pleura: No acute air space opacities. 5 mm subpleural nodule within the right middle lobe lateral segment (series 3, image 211). 3 mm nodule within the right middle lobe anterolaterally (series 3, image 182). 6 mm subpleural nodule within the right upper lobe anteroinferiorly (series 3, image 146). 6 mm subpleural nodule within the medial lingula (series 3, image 161). 9 mm nodule within the subpleural aspect of the left lower lobe anteriorly (series 3, image 146). No pleural effusions or pneumothorax. Central and peripheral airways are patent and normal in caliber. Mediastinum: Heart size is normal. No pericardial effusion. Bilateral hilar adenopathy is present, measuring 20 mm short axis bilaterally. Mildly enlarged mediastinal lymph nodes are present, measuring 12 mm short axis in the precarinal location, 14 mm short axis in the subcarinal location, and 15 mm short axis in the AP window location. Thoracic aorta and central pulmonary arteries are normal in size. Esophagus is normal in caliber. No hiatal hernia. Bones and chest wall: No suspicious bony lesions. No vertebral body compression fractures. No axillary or supraclavicular adenopathy by size criteria. Thyroid gland demonstrates a 4 mm low-density nodule within the left lobe inferiorly. . Abdomen: Visualized upper abdominal solid organs appear normal. Upper abdominal bowel loops are normal in caliber. IMPRESSION: 1. Bilateral pulmonary nodules, as well as mediastinal and hilar adenopathy. Differential considerations include metastatic disease, lymphoma, and granulomatous processes such as mycobacterial or fungal infection , or sarcoidosis. The pulmonary nodules are too small for percutaneous biopsy. Whole-body PET-CT examination may be helpful for further assessment. Dictated by: Rosi Walden M.D. on 01/22/2021 at 11:55 Approved by: Rosi Walden M.D. on 01/22/2021 at 12:03
== END ==
PROVIDERS: PCP Internal Medicine; Referring Provider Internal Medicine; Visit Provider Internal Medicine
DX: R05 Cough (principal); Z77.128 Contact with and (suspected) exposure to other hazards in the physical environment; R91.8 Other nonspecific abnormal finding of lung field; R59.1 Generalized enlarged lymph nodes
CPT/HCPCS: 71260; Q9967

== ENCOUNTER → 2021-02-08 13:07 | Outpatient (CLI) | payer MEDICARE, OTHER, SELFPAY ==
--- NOTE | 2021-02-08 | DI.US.S_ITS ---
PROCEDURE: US THYROID INDICATIONS: THYROID CANCER TECHNIQUE: Real-time scanning was performed of the thyroid gland, with image documentation. COMPARISON: [facility], [place], [place] CT FUSION SKULL 2 THIGH, 01/31/2021, 9:24. FINDINGS: Right: Thyroid lobe measures 6.0 x 1.9 x 1.9 cm, and is homogeneous in echotexture. Left: Thyroid lobe measures 6.3 x 2.1 x 2.1 cm, and is homogenous in echotexture. Isthmus: 3.9 mm thick. Nodule number: 1 Location: Left inferior Size: 2.3 x 2.1 x 1.3 cm. Composition: Solid Echogenicity: Hyperechoic Shape: wider than tall. Margins: Smooth Echogenic foci: None Total points: 3 ACR TI-RADS category: Mildly suspicious Nodule number: 2 Location: Left mid Size: 1.4 x 1.1 x 0.8 cm. Composition: Solid Echogenicity: Isoechoic Shape: wider than tall. Margins: Smooth Echogenic foci: None Total points: 3 ACR TI-RADS category: Mildly suspicious IMPRESSION: 2 left thyroid nodules. Recommend sonographically directed fine-needle aspiration involving the left #1 inferior nodule. ACR TI-RADS definitions and recommendations: TI-RADS 1 (benign): 0 points. FNA not needed. TI-RADS 2 (not suspicious): 2 points. FNA not needed. TI-RADS 3 (mildly suspicious): 3 points. * FNA if 2.5 cm or larger, follow up if 1.5 cm or larger (at 1, 3, and 5 years). TI-RADS 4 (moderately suspicious): 4-6 points. * FNA if 1.5 cm or larger, follow up if 1 cm or larger (at 1, 2, 3, and 5 years). TI-RADS 5 (highly suspicious): 7 points or more. * FNA if 1 cm or larger, follow up if 0.5 cm or larger (every year for 5 years). Dictated by: Fredi Nelson [facility] Interpreted: Jayna Tatum MD on 02/08/2021 at 15:56 Transcribed by: CJ on 02/08/2021 at 16:01 Approved by: Jayna Tatum M.D. on 02/08/2021 at 21:51
--- OUTSIDE RECORDS SUMMARY | 2021-02-12 08:03 | XMS_ITS | Referral Summary ---
:1955 Author Organization [facility] Address [address] [place] [id number] Care Team Providers Name Role Phone Praneeth Primary Care Provider Reason for Referral Consultation (Routine) - Authorized Specialty Diagnoses / Procedures Referred By Contact Refer red To Contact Diagnoses Cough Pulmonary nodules Mediastinal adenopathy Thyroid nodule Suzy Parada MD [facility] Procedures Complete PFT with DLCO [address] [facility] [address] [place], [place] [address] [place] [id number] Referral ID Status Reason Start Date Expiration Date Visits V isits Requested Authorized [id number] Authorized 02/09/2021 02/04/2022 1 1 Reason for Visit Reason Comments granulomatous lung disease Consultation (Urgent) - Closed Specialty Diagnoses / Procedures Referred By Contact Refer red To Contact Pulmonology Diagnoses Granulomatous lung disease (CMS/HCC) Glenys Dacosta [facility] Pulmonology [address] [facility] [address] [place] [address] [place] [address] Phone: Fax: Referral ID Status Reason Start Date Expiration Date Visits Requ ested Visits Authorized [id number] Closed 02/07/2021 02/02/2022 1 1 Encounter Details Date Type Department Care Team Description 02/09/2021 Office Visit [facility] Suzy Parada, Lizbeth (Pr imary Dx); Clinics Pulmonology Pulmonary nodules; [place] [address] Mediastinal adenopathy; [address] [place] Thyroid nodule; [place], [facility], [place] Preoper ative testing; [id number] Unspecified disorder of calcium metaboli sm [phone] Allergies Active Allergy Reactions Severity Noted Date Comments Triprolidine-Pseudoephedrine 09/22/2017 documented as of this encounter (statuses as of 02/09/2021) Medications Medication Sig Dispensed Refills Start Date End Date Status ibuprofen Take 200 mg by 0 Activ e (ADVIL,MOTRIN) 200 mg mouth as needed tablet for mild pain. rosuvastatin (CRESTOR) 2 10/21/2017 Active 10 mg tablet tamsulosin (FLOMAX) 0.4 2 10/21/2017 Active mg capsule,extended release 24hr meloxicam (MOBIC) 15 mg TAKE 1/2 TO 1 0 02/07/2021 Active tablet TABLET BY MOUTH EVERY DAY azithromycin 0 02/06/2021 Active (ZITHROMAX) 250 mg tablet documented as of this encounter (statuses as of 02/09/2021) Active Problems Problem Noted Date Mediastinal adenopathy 02/09/2021 Last Assessment & Plan: Patient has mediastinal lymphadenopathy that symmetric and mildly FDG avid most consistent with a picture of clinical sarcoidosis. We will plan for endobronchial ultrasound-guided biopsies of the media stinal lymph nodes to confirm diagnosis and then evaluate the need for treatment based on several factors eluding EKG, calcitriol levels, PFTs, and other pulmonary symptoms. This time clinically he see ms very well so it is unclear whether he will need treatment. Pulmonary nodules 02/09/2021 Last Assessment & Plan: Has multiple pulmonary nodules likely se condary sarcoidosis in the clinical picture. We recommend tissue sampling for which he grade to proceed with endobronchial ultrasound-guided biopsies of his medi astinal lymph node to confirm the diagno sis and then we will consider treatment with corticosteroid therapy. Thyroid nodule 02/09/2021 Last Assessment & Plan: Patient has a hypermetabolic left thyroi d nodule. He has an upcoming FNA next week which I encouraged him to follow through. Cough 02/09/2021 Last Assessment & Plan: Patient's cough is likely a symptom of h is multiple pulmonary nodules likely secondary to sarcoidosis. H it is not clear he even has symptoms warranting treatment however his diagnosis is not confirmed . We recommend tissue sampling with end obronchial ultrasound-guided biopsies of his mediastinal lymph nodes to confirm the diagnosis as this may warrant treatment in the future or at least surveillance for symptomatic sarcoidosis including e xtrapulmonary involvement. I do recommend screening lab work to look for calcium metabolism issues and cardiac involvement with an EKG as well as asymptomatic pu lmonary involvement with PFTs. We will have this performed when he comes for his endobronchial ultrasound-guided biopsy. He is in agreement with the plan. Preoperative testing 02/09/2021 Last Assessment & Plan: Covid test ordered for preoperative test ing before bronchoscopy. Dupuytren's contracture of both hands 09/22/2017 documented as of this encounter (statuses as of 02/09/2021) Immunizations Name Administration Dates Next Due documented as of this encounter Social History Tobacco Use Types Packs/Day Years Used Date Former Smoker Cigarettes 2 5 Smokeless Tobacco: Former User Chew Comments: 18 yr passive smoke exposure i n addition to Alcohol Use Standard Drinks/Week Comments Yes 2 (1 standard drink = 0.6 oz pure alcoho l) Sex Assigned at Date Recorded Not on file Job Start Date Occupation Industry Not on file Not on file Not on file documented as of this encounter Last Filed Vital Signs Vital Sign Reading Time Taken Comments Blood Pressure 119/80 02/09/2021 8:24 AM PDT Pulse 67 02/09/2021 8:24 AM PDT Temperature - - Respiratory Rate - - Oxygen Saturation 98% 02/09/2021 8:24 AM PDT Inhaled Oxygen Concentration - - Weight 99.6 kg (219 lb 9.6 oz) 02/09/2021 8:24 AM PDT Height 191.8 cm (6' 3.5) 02/09/2021 8:24 AM PDT Body Mass Index 27.09 02/09/2021 8:24 AM PDT documented in this encounter Progress Notes Suzy Parada MD - 02/09/2021 8:20 AM PDT Abimael, It was a pleasure meeting you today. We discussed the lung nodules or spots and enlarged lymph nodes are most likely from sarcoidosis not from a cancer. This is an inflammation related disorder due to dysregulation of your immune system. Most times it goes away on its own and does not require treatment. However sometimes it does require treatment with steroids that resulted in remission or may require medications for the rest of your life. It can affect other parts of your body. It is important to first confirm the diagnosis with a scope procedure called bronchoscopy which is a same-day procedure done and anesthesia. We will call you to schedule this. The second thing is to get lung function test to see if it is affecting your lung function even though you do not feel short of breath. These help decide whether or not you need any treatment. You were otherwise quite healthy and doing well. Please let me know if you have any questions or concerns in the meanwhile. Sincerely, Dr. Christiansonectronically signed by Suzy Parada MD at 02/09/2021 8:52 AM PDT Suzy Parada MD - 02/09/2021 8:20 AM PDT Outpatient Pulmonary Clinic Note 02/09/21 Primary Care Physician: Glenys Dacosta Reason for Referral: cough, mediastinal adenopathy, lung nodules Subjective Subjective Dear Glenys Dacosta, I had the pleasure of seeing your patient Abimael Pedro who is a pleasant 66 y.o. male with DANETTE on CPAP awaiting new device due to recall, cough who presents today for evaluation of abnormal imaging findings. Patient states he thinks he is had a cough for couple months though his thinks it has been going on longer. It has been dry and nonproductive. Its not very bothersome. He first underwent a chest x-ray that was abnormal and subsequently a chest CT with contrast showing bilateral mediastinal adenopathy, multiple tiny lung nodules. He subsequently underwent a PET/CT which showed bilateral mediastinal adenopathy uptake, left thyroid nodule uptake, and no uptake in the nodules b elow the threshold for detection. He reports no lung disease. He reports no shortness of breath orchest pain. Reports no cardiac issues though his mother had atrial fibrillation and that is why he was using CPAP for DANETTE. He denies any rash. No liver or kidney problems such as kidney stones. He has no other inhalational exposures. He is able to hike without any dyspnea. He has no history of immune disease. He really feels quite well. Currently his treatment included antibiotics for granulomatous disease. I think he was told radiology could not biopsy the tiny nodules so he was sent to us. PROBLEM LIST: Past Medical History: Diagnosis Date ??? Arthritis ??? Dupuytren contracture ??? Granulomatous lung disease (CMS/HCC) Past Surgical History: Procedure Laterality Date ??? DUPUYTREN CONTRACTURE RELEASE Bilateral 1979 Middle Finger [place] ??? DUPUYTREN CONTRACTURE RELEASE Right 2015 Right small finger - [place] ??? KNEE ARTHROSCOPY W/ ACL RECONSTRUCTION Left 1984 History reviewed. No pertinent family history. Social History Socioeconomic History ??? Marital status: Spouse name: Not on file ??? Number of children: Not on file ??? Years of education: Not on file ??? Highest education level: Not on file Tobacco Use ??? Smoking status: Former Smoker Packs/day: 2.00 Years: 5.00 Pack years: 10.00 Types: Cigarettes ??? Smokeless tobacco: Former User Types: Chew ??? Tobacco comment: 18 yr passive smoke exposure in addition to Vaping Use ??? Vaping Use: Some days ??? Substances: THC, CBD ??? Devices: Disposable, Pre-filled or refillable cartridge Substance and Sexual Activity ??? Alcohol use: Yes Alcohol/week: 2.0 standard drinks Types: 2 Cans of beer per week ??? Drug use: Yes Types: Marijuana Comment: vape ??? Sexual activity: Defer Allergies Allergen Reactions ??? Antihistamine [Triprolidine-Pseudoephedrine] Current Medication List Sig azithromycin (ZITHROMAX) 250 mg tablet meloxicam (MOBIC) 15 mg tablet TAKE 1/2 TO 1 TABLET BY MOUTH EVERY DAY rosuvastatin (CRESTOR) 10 mg tablet tamsulosin (FLOMAX) 0.4 mg capsule,extended release 24hr ibuprofen (ADVIL,MOTRIN) 200 mg tablet Take 200 mg by mouth as needed for mild pain. Review of Systems Objective Objective BP 119/80 (BP Location: Left arm, Patient Position: Sitting) Pulse 67 Ht 1.918 m Wt 99.6 kg SpO2 98% BMI 27.09 kg/m?? Physical Exam: General appearance: Well-appearing middle-aged male sitting up in chair no distress, pleasant and cooperative HEET: Normocephalic atraumatic Cardiovascular: Regular rate and rhythm. Respiratory: Clear to auscultation bilaterally. No wheezes, rhonchi, or rales. Symmetrical chest wall expansion. No dullness to percussion or egophony. Normal work of breathing. Neuro: Alert, awake, oriented, no focal deficits. Psych: appropriate mood and affect Skin: no rashes on face LABS I have no labs to review Pulmonary Functions Testing Results: No PFTs to review IMAGING I personally reviewed CT chest with contrast showing bilateral mediastinal and hilar adenopathy, multiple tiny lung nodules I personally reviewed PET/CT showing bilateral hilar FDG uptake, left thyroid nodule uptake, liver, periportal lymph node uptake as well Assessment and Plan Assessment Assessment/Plan Comments: 1. Cough (Primary) Assessment & Plan: Patient's cough is likely a symptom of his multiple pulmonary nodules likely secondary to sarcoidosis. H it is not clear he even has symptoms warranting treatment however his diagnosis is not confirmed. We recommend tissue sampling with endobronchial ultrasound-guided biopsies of his mediastinal lymph nodes to confirm the diagnosis as this may warrant treatment in the future or at least surveillance for symptomatic sarcoidosis including extrapulmonary involvement. I do recommend screening lab work to look for calcium metabolism issues and cardiac involvement with an EKG as well as asymptomatic pulmonary involvement with PFTs. We will have this performed when he comes for his endobronchial ultrasound-guided biopsy. He is in agreement with the plan. Orders: - Complete PFT with DLCO; Future - POCT SARS-CoV-2 (COVID-19) Antigen - Case Request GI; Standing - Calcitriol; Future - ECG 12 lead; Future 2. Pulmonary nodules Assessment & Plan: Has multiple pulmonary nodules likely secondary sarcoidosis in the clinical picture. We recommend tissue sampling for which he grade to proceed with endobronchial ultrasound-guided biopsies of his mediastinal lymph node to confirm the diagnosis and then we will consider treatment with corticosteroid t herapy. Orders: - Complete PFT with DLCO; Future - POCT SARS-CoV-2 (COVID-19) Antigen - Case Request GI; Standing - Calcitriol; Future - ECG 12 lead; Future 3. Mediastinal adenopathy Assessment & Plan: Patient has mediastinal lymphadenopathy that symmetric and mildly FDG avid most consistent with a picture of clinical sarcoidosis. We will plan for endobronchial ultrasound-guided biopsies of the mediastinal lymph nodes to confirm diagnosis and then evaluate the need for treatment based on several fac tors eluding EKG, calcitriol levels, PFTs, and other pulmonary symptoms. This time clinically he seems very well so it is unclear whether he will need treatment. Orders: - Complete PFT with DLCO; Future - POCT SARS-CoV-2 (COVID-19) Antigen - Case Request GI; Standing - Calcitriol; Future - ECG 12 lead; Future 4. Thyroid nodule Assessment & Plan: Patient has a hypermetabolic left thyroid nodule. He has an upcoming FNA next week which I encouraged him to follow through. Orders: - Complete PFT with DLCO; Future - POCT SARS-CoV-2 (COVID-19) Antigen - Case Request GI; Standing - Calcitriol; Future - ECG 12 lead; Future 5. Preoperative testing Assessment & Plan: Covid test ordered for preoperative testing before bronchoscopy. Orders: - POCT SARS-CoV-2 (COVID-19) Antigen - Case Request GI; Standing - Calcitriol; Future - ECG 12 lead; Future 6. Unspecified disorder of calcium metabolism - Calcitriol; Future Other orders - NPO Diet; Standing - Vital Signs; Standing - Cardiac monitoring; Standing - Continuous Pulse Oximetry; Standing - Assess; Standing - Notify physician (specify); Standing - Misc nursing order (specify); Standing - Provide patient education materials; Standing - POCT glucose; Standing - Full code; Standing - Inpatient consult to Anesthesiology; Standing - Insert peripheral IV; Standing - lactated Ringers Follow-up: after bronchoscopy I spent a total of 60 minutes on date of service participating in evaluation and management of the patient's diagnoses cough, pulmonary nodules, mediastinal adenopathy, thyroid nodule, sarcoidosis, personal review and independent interpretation of CT and PET, review of external PCP and research consultant notes, ordering of tests bronchoscopy, labwork, COVId testing, discussion of management and test interpretation with PCP and research consultant, documentation, and counseling patient. Please note that this dictation was completed with computer voice recognition software. Quite often unanticipated grammatical, syntax, homophones, and other interpretive errors are inadvertently transcribed by the computer software. Please disregard these errors. Please excuse any errors that have escaped final proofreading. Electronically signed by Suzy Parada MD 02/09/2021 9:03 AM documented in this encounter Plan of Treatment Scheduled Orders Name Type Priority Associated Diagnoses Order S chedule Complete PFT with PFT Routine Cough 1 Occurrences DLCO Pulmonary nodule s starting 02/09/2021 Mediastinal until 2 adenopathy Thyroid nodule Calcitriol Lab Routine Cough 1 Occurrences Pulmonary nodule s starting 02/09/2021 Mediastinal until 2 adenopathy Thyroid nodule Preoperative james ting Unspecified disorder of calcium metabolism ECG 12 lead ECG Routine Cough 1 Occurrences Pulmonary nodule s starting 02/09/2021 Mediastinal until 2 adenopathy Thyroid nodule Preoperative testing SARS-CoV-2 (COVID-19) Microbiology Routine Cough 1 Occurrences QUAL PCR (General Pulmonary nodu les starting 02/09/2021 Screening) Mediastinal until 2 adenopathy Thyroid nodule Preoperative james ting Unspecified disorder of calcium metabolism Scheduled Procedures Name Priority Associated Diagnoses Date/Time BRONCHOSCOPY, RIGID OR FLEXIBLE, Cough INCLUDING FLUOROSCOPIC GUIDANCE, Pulmona ry nodules WHEN PERFORMED; WITH ENDOBRONCHIAL Media stinal adenopathy ULTRASOUND GUIDED TRANSTRACHEAL Thyroid nodule AND/OR TRANSBRONCHIAL SAMPLING, 3 Preoperative t esting OR MORE MEDIASTINAL AND/OR HILAR documented as of this encounter Visit Diagnoses Diagnosis Cough - Primary Pulmonary nodules Other diseases of lung, not elsewhere cl assified Mediastinal adenopathy Enlargement of lymph nodes Thyroid nodule Nontoxic uninodular goiter Preoperative testing Unspecified pre-operative examination Unspecified disorder of calcium metaboli sm Assessment & Plan Note - Suzy Parada MD - 02/09/2021 9:02 AM PDT Associated Problem(s): Thyroid nodule Patient has a hypermetabolic left thyroid nodule. He has an upcoming FNA next week which I encouraged him to follow through. ssessment & Plan Note - Suzy Parada MD - 02/09/2021 9:02 AM PDTAssociated Problem(s): Preoperative testing Covid test ordered for preoperative testing before bronchoscopy. ssessment & Plan Note - Suzy Parada MD - 02/09/2021 8:59 AM PDTAssociated Problem(s): Mediastinal adenopathy Patient has mediastinal lymphadenopathy that symmetric and mildly FDG avid most consistent with a picture of clinical sarcoidosis. We will plan for endobronchial ultrasound-guided biopsies of the mediastinal lymph nodes to confirm diagnosis and then evaluate the need for treatment based on several fac tors eluding EKG, calcitriol levels, PFTs, and other pulmonary symptoms. This time clinically he seems very well so it is unclear whether he will need treatment. Assessment & Plan Note - Suzy Parada MD - 02/09/2021 8:59 AM PDT Associated Problem(s): Pulmonary nodules Has multiple pulmonary nodules likely secondary sarcoidosis in the clinical picture. We recommend tissue sampling for which he grade to proceed with endobronchial ultrasound-guided biopsies of his mediastinal lymph node to confirm the diagnosis and then we will consider treatment with corticosteroid t herapy. Assessment & Plan Note - Suzy Parada MD - 02/09/2021 8:58 AM PDT Associated Problem(s): Cough Patient's cough is likely a symptom of his multiple pulmonary nodules likely secondary to sarcoidosis. H it is not clear he even has symptoms warranting treatment however his diagnosis is not confirmed. We recommend tissue sampling with endobronchial ultrasound-guided biopsies of his mediastinal lymph nodes to confirm the diagnosis as this may warrant treatment in the future or at least surveillance for symptomatic sarcoidosis including extrapulmonary involvement. I do recommend screening lab work to look for calcium metabolism issues and cardiac involvement with an EKG as well as asymptomatic pulmonary involvement with PFTs. We will have this performed when he comes for his endobronchial ultrasound-guided biopsy. He is in agreement with the plan. documented in this encounter Insurance Payer Benefit Plan / Subscriber ID Effective Dates Phone Addre ss Type Group MEDICARE MEDICARE PART [id number] 2017-[place] [phone] [address] [place] [address] [employer] SUPP [employer]UE [id number] 2018-Presen [phone] [address] [address] [address] [place] [address] documented as of this encounter Advance Directives Documents on File Type Date Recorded Patient Computer Aided Design Technician Explanati on Advance Directives and Living Will Care Teams Information Management Manager Relationship Specialty Start Date End Date Glenys Dacosta PCP - General Internal Medicine 09/22/17 [address] [id number] documented as of this encounter
== END ==
PROVIDERS: PCP Internal Medicine; Referring Provider Internal Medicine; Visit Provider Internal Medicine
DX: D49.7 Neoplasm of unspecified behavior of endocrine glands and other parts of nervous system (principal); C77.9 Secondary and unspecified malignant neoplasm of lymph node, unspecified; E04.2 Nontoxic multinodular goiter
CPT/HCPCS: 76536

== ENCOUNTER → 2021-02-14 08:53 | Outpatient (CLI) | payer MEDICARE, OTHER, SELFPAY ==
[2021-02-14 10:13] LABS: COVID19 -Nasal RAPID Negative (Negative)
== END ==
PROVIDERS: PCP Internal Medicine; Referring Provider Internal Medicine; Visit Provider Internal Medicine
DX: Z20.822 Contact with and (suspected) exposure to COVID-19 (principal)
CPT/HCPCS: 87635; C9803

== ENCOUNTER → 2021-02-15 06:44 | Outpatient (CLI) | payer MEDICARE, OTHER, SELFPAY ==
--- NOTE | 2021-02-23 08:50 | PM.PFT.1 ---
Pulmonary Function Test Referral & Results Date Patient Seen: 02/15/21 Requesting provider: Suzy Parada Indication: Sarcoidosis Results: The spirometry demonstrates an FVC of 5.46 L which is 98% of predicted. The FEV1 was measured at 3.93 L which is 95% of predicted. The FEV1/FVC ratio was 72 which is 97% of predicted. Following the administration of bronchodilator there was no significant change to above normal numbers Lung volumes show an SVC of 5.51 L which is 100% of predicted. The diffusing capacity was measured at 36.6 which is 90% of predicted. The maximum voluntary ventilation was normal Interpretation: This study demonstrates normal pulmonary function
== END ==
PROVIDERS: PCP Internal Medicine; Referring Provider Internal Medicine; Visit Provider Internal Medicine
DX: D86.9 Sarcoidosis, unspecified (principal); Z87.891 Personal history of nicotine dependence; J98.8 Other specified respiratory disorders; R05 Cough; R91.8 Other nonspecific abnormal finding of lung field; R59.0 Localized enlarged lymph nodes; E04.1 Nontoxic single thyroid nodule
CPT/HCPCS: 94060; 94726; 94729

== ENCOUNTER → 2022-11-04 07:35 | Outpatient (CLI) | payer MEDICARE, OTHER, SELFPAY ==
[2022-11-04 08:36] LABS: Add Manual Diff / Slide Review NO; Basophils Absolute Auto 100 /uL (0-100); Basophils Percent Auto 0.8 % (0-2); Eosinophils Absolute Auto 300 /uL (0-450); Eosinophils Percent Auto 4.9 % (2-4); Hematocrit 42.7 % (41-53); Hemoglobin 14.5 g/dL (13.5-17.5); Lymphocytes Absolute Auto 2100 /uL (1100-4500); Lymphocytes Percent Auto 29.2 % (25-40); Mean Corpuscular Hemoglobin 30.5 PG (26-34); Monocytes Absolute Auto 700 /uL (0-900); Neutrophils Absolute Auto 3900 /uL (1500-7000); Neutrophils Percent Auto 55.1 % (50-75); Platelet Count 210 X10^3/uL (150-400); Red Blood Cell Count 4.75 X10^6/uL (4.5-5.9); Red Cell Distribution Width 12.5 % (11.6-14.8); White Blood Cell Count 7.1 X10^3/uL (4.5-11.0)
[2022-11-04 08:52] LABS: Alanine Aminotransferase 20 IU/L (<50); Albumin 3.8 g/dL (3.5-5.0); Albumin Globulin Ratio 1.5 (1.0-2.8); Alkaline Phosphatase 52 U/L (38-126); Aspartate Aminotransferase 25 IU/L (17-59); BUN Creatinine Ratio 18.7 (6-22); Bilirubin Total 0.4 mg/dL (0.2-1.3); Blood Urea Nitrogen 20 mg/dL (9-20); Carbon Dioxide 30 mmol/L (22-32); Chloride 102 mmol/L (98-107); Cholesterol 191 mg/dL (140-199); Estimated Glomerular Filt Rate > 60 mL/min (>60); Globulin 2.6 g/dL (1.7-4.1); Glucose 94 mg/dL (80-110); HDL Cholesterol 46 mg/dL (40-60); HEMOLYSIS < 15 (0-50); LDL Cholesterol Calculated 125 mg/dL (<100); Potassium 4.7 mmol/L (3.4-5.1); Sodium 137 mmol/L (137-145); Total Protein 6.4 g/dL (6.3-8.2); Triglycerides 101 mg/dL (35-150)
[2022-11-04 09:22] LABS: Thyroid Stimulating Hormone 1.97 uIU/mL (0.47-4.68)
[2022-11-04 09:39] LABS: Vitamin B12 314 pg/mL (239-931)
== END ==
PROVIDERS: PCP Internal Medicine; Referring Provider Internal Medicine; Visit Provider Internal Medicine
DX: E53.8 Deficiency of other specified B group vitamins (principal); Z79.899 Other long term (current) drug therapy; Z12.5 Encounter for screening for malignant neoplasm of prostate; E78.5 Hyperlipidemia, unspecified; D49.7 Neoplasm of unspecified behavior of endocrine glands and other parts of nervous system
CPT/HCPCS: 36415; 80053; 80061; 82607; 84443; 85025; G0103

== ENCOUNTER → 2023-10-16 18:39 | Outpatient (CLI) | payer MEDICARE, OTHER, SELFPAY ==
--- NOTE | 2023-10-16 18:41 | DI.RAD.S_ITS ---
PROCEDURE: XR CHEST 2V INDICATIONS: Cough TECHNIQUE: 2 views of the chest were acquired. COMPARISON: [facility], CR, XR CHEST 2V, 01/10/2021, 15:57. FINDINGS: Surgical changes and devices: None. Lungs and pleura: Lungs are clear. No pleural effusions or pneumothorax. Mediastinum: Mediastinal contours are normal. Heart size is normal. Bones and chest wall: No suspicious bony abnormalities. Soft tissues appear unremarkable. IMPRESSION: No acute cardiopulmonary abnormality is seen. Dictated by: Herb Barr M.D. on 10/17/2023 at 10:46 Approved by: Herb Barr M.D. on 10/17/2023 at 10:46
== END ==
PROVIDERS: PCP Internal Medicine; Referring Provider Nurse Practitioner Family; Visit Provider Nurse Practitioner Family
DX: R05.9 Cough, unspecified (principal)
CPT/HCPCS: 71046

== ENCOUNTER → 2023-12-23 10:16 | Outpatient (CLI) | payer MEDICARE, OTHER, SELFPAY ==
--- NOTE | 2023-12-23 10:17 | DI.US.S_ITS ---
PROCEDURE: US THYROID INDICATIONS: [facility] nodules- [facility] TECHNIQUE: Real-time scanning was performed of the thyroid gland, with image documentation. COMPARISON: Outside Facility, RG, US THYROID, 04/23/2023, 7:53. Outside Facility, RG, US THYROID, 02/26/2022, 14:40. [facility], US, US THYROID, 02/08/2021, 13:45. FINDINGS: Thyroid: Right lobe measures 4.5 x 1.81.5 cm. Left lobe measures 6.0 x 2.0 x 2 1 cm. Isthmus is 4 cm thick. Echotexture is homogeneous. Nodule number: 1 Location: Left inferior Size: 2.1 x 1.8 x 2.0 compared to 2.3 x 2.1 x 1.3 cm. Composition: Solid Echogenicity: Hypoechoic Shape: wider than tall. Margins: Irregular Echogenic foci: None Total points: 4 ACR TI-RADS category: 4 Nodule number: 2 Location: Left mid Size: 1.5 x 1.3 x 1.1 cm compared to 1.4 x 1.1 x 0.8 cm. Composition: Solid Echogenicity: Hypoechoic Shape: wider than tall. Margins: Smooth Echogenic foci: None Total points: 4 ACR TI-RADS category: 4 IMPRESSION: Lesion 1 is considered category 4. Recommend interval follow-up to document stability. Recommend interval followup for 5 years from initial visualization to document stability. Given size FNA is typically recommended. Recommend correlation to any prior FNA. However, given stability over several years, ultrasound follow-up may be obtained. 2. Lesion 2 is considered category 4. Recommend interval follow-up to document stability. Recommend interval followup for 5 years from initial visualization to document stability. Given size FNA is typically recommended. Recommend correlation to any prior FNA. However, given stability over several years, ultrasound follow-up may be obtained. ACR TI-RADS definitions and recommendations: TI-RADS 1 (benign): 0 points. FNA not needed. TI-RADS 2 (not suspicious): 2 points. FNA not needed. TI-RADS 3 (mildly suspicious): 3 points. * FNA if 2.5 cm or larger, follow up if 1.5 cm or larger (at 1, 3, and 5 years). TI-RADS 4 (moderately suspicious): 4-6 points. * FNA if 1.5 cm or larger, follow up if 1 cm or larger (at 1, 2, 3, and 5 years). TI-RADS 5 (highly suspicious): 7 points or more. * FNA if 1 cm or larger, follow up if 0.5 cm or larger (every year for 5 years). Dictated by: Ivelisse Fry M.D. on 12/24/2023 at 23:38 Approved by: Ivelisse Fry M.D. on 12/24/2023 at 23:41
== END ==
PROVIDERS: PCP Family Medicine; Referring Provider Family Medicine; Visit Provider Family Medicine
DX: E04.2 Nontoxic multinodular goiter (principal)
CPT/HCPCS: 76536

== ENCOUNTER → 2023-12-27 08:02 | Outpatient (CLI) | payer MEDICARE, OTHER, SELFPAY ==
[2023-12-27 09:17] LABS: Add Manual Diff / Slide Review NO; Basophils Absolute Auto 0 /uL (0-100); Basophils Percent Auto 0.6 % (0-2); Eosinophils Absolute Auto 200 /uL (0-450); Eosinophils Percent Auto 2.8 % (2-4); Hematocrit 44.2 % (41-53); Hemoglobin 14.8 g/dL (13.5-17.5); Lymphocytes Absolute Auto 1700 /uL (1100-4500); Lymphocytes Percent Auto 28.2 % (25-40); Mean Corpuscular HGB Conc 33.4 % (30-36); Mean Corpuscular Hemoglobin 30.8 PG (26-34); Mean Corpuscular Volume 92.2 fL (80-100); Monocytes Absolute Auto 700 /uL (0-900); Monocytes Percent Auto 10.8 % (3-14); Neutrophils Absolute Auto 3600 /uL (1500-7000); Neutrophils Percent Auto 57.6 % (50-75); Platelet Count 227 X10^3/uL (150-400); Red Cell Distribution Width 12.8 % (11.6-14.8); White Blood Cell Count 6.2 X10^3/uL (4.5-11.0)
[2023-12-27 09:44] LABS: Alanine Aminotransferase 23 IU/L (<50); Albumin 3.9 g/dL (3.5-5.0); Albumin Globulin Ratio 1.6 (1.0-2.8); Alkaline Phosphatase 55 U/L (38-126); Aspartate Aminotransferase 28 IU/L (17-59); BUN Creatinine Ratio 15.3 (6-22); Bilirubin Total 0.6 mg/dL (0.2-1.3); Blood Urea Nitrogen 13 mg/dL (9-20); Carbon Dioxide 27 mmol/L (22-32); Chloride 107 mmol/L (98-107); Cholesterol 177 mg/dL (140-199); Estimated Glomerular Filt Rate > 60 mL/min (>60); Globulin 2.5 g/dL (1.7-4.1); Glucose 100 mg/dL (80-110); HDL Cholesterol 54 mg/dL (40-60); HEMOLYSIS < 15 (0-50); LDL Cholesterol Calculated 108 mg/dL (<100); Potassium 4.5 mmol/L (3.4-5.1); Sodium 140 mmol/L (137-145); Total Protein 6.4 g/dL (6.3-8.2); Triglycerides 74 mg/dL (35-150)
[2023-12-27 10:00] LABS: Free T4, Direct Thyroxine 1.29 ng/dL (0.78-2.19)
[2023-12-27 10:14] LABS: Prostate Specific Antigen Scrn 3.46 ng/mL (0.1-4.0)
[2023-12-27 10:15] LABS: Thyroid Stimulating Hormone 2.08 uIU/mL (0.47-4.68)
== END ==
PROVIDERS: PCP Family Medicine; Referring Provider Family Medicine; Visit Provider Family Medicine
DX: E78.5 Hyperlipidemia, unspecified (principal); Z12.5 Encounter for screening for malignant neoplasm of prostate; N40.0 Benign prostatic hyperplasia without lower urinary tract symptoms; G47.33 Obstructive sleep apnea (adult) (pediatric)
CPT/HCPCS: 36415; 80053; 80061; 84439; 84443; 85025; G0103

== ENCOUNTER 2024-03-05 11:33 | Day surgery (SDC) | payer MEDICARE, OTHER, SELFPAY ==
--- NOTE | 2024-03-05 | PATH_ITS ---
[facility] Accession Number: [id number] No. of containers..01 Tissue . 01 Material submitted: . colon - ASCENDING COLON POLYP . 01 Diagnosis: ASCENDING COLON, POLYP: Tubular adenoma. [facility] 03/09/2024 0938 Local . 01 Electronically signed: . Pilar Abreu MD, Pathologist NPI- [id number] . 01 Gross description: . ASCENDING COLON POLYP: Received in formalin are 3 fragment(s) of [place], soft tissue measuring 0.1 x 0.1 x 0.1 cm to 0.4 x 0.3 x 0.2 cm submitted entirely in 1 cassette(s) /[facility] 03/06/2024 0135 Local . 01 Pathologist provided ICD-10: D12.2 . 01 CPT . 127892 Specimen Comment: A courtesy copy of this report has been sent to [phone] Performed at: [address] [id number] MD Jaime Enciso MD Phone: [phone]
[2024-03-05 11:54] VITALS: BP 144/97; PULSE 65; RESP 16; TEMP 36.2; O2SAT 97
[2024-03-05] MEDS: LACTATED RINGERS 1,000 ML 42 ML IV (12:01)
--- NOTE | 2024-03-05 12:50 | P.HP_ITS ---
History of Present Illness History of Present Illness Date Patient Seen: 03/05/24 Time Patient Seen: 12:50 Chief complaint: Colonoscopy Narrative: 69-year-old male here for diagnostic colonoscopy secondary to rectal bleeding. No interval change in health since last seen. 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 Snoring Obstructive sleep apnea Seasonal allergies Foot pain (~2003) Chronic back pain (~1999) Chicken pox Tinnitus (~2007) Hearing loss (~2003) Colon polyps Surgical History Anesthesia Status post knee surgery (~1988) Family History Father Diabetes mellitus Congestive heart failure Mother Age: 94 Hypertension Social History marital status: (to [facility]) household members: spouse lives independently: Yes occupational status: previously employed Smoking Status: Former smoker alcohol intake: current substance use type: other Meds Home Medications and Allergies Home Medications Medication Instructions Recorded Confirmed Type rosuvastatin 20 mg tablet 20 mg PO DAILY #90 tabs 12/11/23 03/05/24 Rx tamsulosin 0.4 mg capsule 0.4 mg PO BEDTIME #90 caps 12/11/23 01/22/24 Rx valacyclovir 1 gram tablet 1,000 mg PO TID #21 tabs 12/16/23 01/22/24 Rx sodium,potassium,mag sulfates 17.5 See Rx Instructions PO .COMPLEX 01/29/24 Rx gram-3.13 gram-1.6 gram oral soln #354 mL (Suprep Bowel Prep Kit) Allergies Allergy/AdvReac Type Severity Reaction Status Date / Time atorvastatin [ATORVASTATIN] Allergy Unknown Verified 01/22/24 15:57 ANTIHISTAMINE DRUG Allergy Mild Uncoded 01/22/24 15:57 Exam Vital Signs (past 8 hours): - 03/05/24 11:54 Temperature 97.1 F L Pulse Rate 65 Respiratory Rate 16 Blood Pressure 144/97 H Pulse Oximetry 97 Oxygen Delivery Method Room Air Oxygen Delivery Method Room Air Narrative Exam Narrative: General adult man alert oriented no acute distress Chest nonlabored respiration Extremities warm well perfused Assessment & Plan Assessment and plan (1) Hematochezia: Problem details: Colonoscopy Status: Acute Assessment & Plan narrative: Diagnostic colonoscopy is recommended. Technical details were discussed. Risks, benefits, alternatives explained. Risks including but not limited to myocardial infarction, aspiration, bleeding, pain, missed lesion, incomplete examination, need for further radiographic studies, intestinal injury, and need for major abdominal surgery were discussed. All questions were answered to their satisfaction, and they are in agreement with this plan. Time-Based Coding :: [TOTAL MINUTES] spent with patient and on the chart (including review of chart, obtaining history, exam, reviewing outside data, placing orders, documenting exam and treatment plan, and counseling patient) on [DATE].
--- NOTE | 2024-03-05 12:51 | P.OP.COLON_ITS ---
Operative Date/Time/Diagnoses Date of procedure: 03/05/24 Time of procedure: 12:51 Pre-op diagnosis: rectal bleeding Post-op diagnosis: other (Internal hemorrhoids, colonic polyp x1) Procedure & Clinicians Study performed: Diagnostic Colonoscopy with polypectomy Same procedure as scheduled: Yes Indications: Rectal bleeding Surgeon: Frank Whitt Procedure Notes Procedure in detail: The history and physical was performed/updated and the patient is ASA class is 2. The procedure was discussed in detail with the patient. Potential risks complications including infection, bleeding, missed diagnosis, perforation, need for surgery, and were explained. Their questions were answered and informed consent was obtained. Patient was brought to the procedure room and placed standard monitoring equipment. The patient's vital signs were monitored continuously throughout the entire procedure. Prior to starting time-out was performed. The patient was placed in the left lateral recumbent position. Procedural sedation was administered by anesthesia. Examination began with a thorough inspection of the perianal area there was no evidence of fissures, fistulae, external hemorrhoids or cutaneous malignancy. The colonoscopy scope was then placed into the anal canal and was advanced to the cecum, which was identified by the ileocecal valve, the appendiceal orifice and the confluence of the taenia. The scope was then slowly withdrawn examining colon thoroughly in all directions, irrigating it of any residual stool. The scope was retroflexed within the rectum The patient tolerated the procedure well. They will be discharged once criteria are met. The prep was of good/excellent quality. The withdrawl time was 9 minutes. FINDINGS * Ascending colon 5 mm sessile polyp removed with cold snare * Diverticulosis of distal colon mild * Internal hemorrhoids * Specimen(s): other (Ascending colon polyp) Impression: Colonic polyp x1 Post-procedure Recommendations: High fiber diet Plan for aftercare: Follow-up is dependent on pathology findings.
[2024-03-05 13:12] VITALS: BP 104/77; PULSE 61; RESP 19; TEMP 37; O2SAT 95
[2024-03-05 13:18] VITALS: BP 109/72; PULSE 69; RESP 15; O2SAT 96
[2024-03-05 13:23] VITALS: BP 117/79; PULSE 60; RESP 13; TEMP 37; O2SAT 97
== END 2024-03-05 13:30 | disposition home or self-care (01) ==
PROVIDERS: PCP Family Medicine; Referring Provider Surgery; Visit Provider Surgery
PROC: 0DJD8ZZ Inspection of Lower Intestinal Tract, Via Natural or Artificial Opening Endoscopic (ICD-10-PCS; CPT 45378; principal; 2024-03-05 13:00)
DX: K62.5 Hemorrhage of anus and rectum (principal); K57.30 Diverticulosis of large intestine without perforation or abscess without bleeding; K64.8 Other hemorrhoids; D12.2 Benign neoplasm of ascending colon
CPT/HCPCS: 45385

== ENCOUNTER → 2025-05-16 10:28 | Outpatient (CLI) | payer MEDICARE, OTHER, SELFPAY ==
[2025-05-16 11:30] LABS: Add Manual Diff / Slide Review NO; Hematocrit 43.7 % (41-53); Hemoglobin 15.1 g/dL (13.5-17.5); Lymphocytes Absolute Auto 1500 /uL (1100-4500); Mean Corpuscular HGB Conc 34.5 % (30-36); Mean Corpuscular Hemoglobin 31.1 PG (26-34); Mean Corpuscular Volume 90.1 fL (80-100); Platelet Count 221 X10^3/uL (150-400)
[2025-05-16 11:58] LABS: Alanine Aminotransferase 20 IU/L (<50); Albumin 4.0 g/dL (3.5-5.0); Albumin Globulin Ratio 1.5 (1.0-2.8); Alkaline Phosphatase 59 U/L (38-126); Blood Urea Nitrogen 15 mg/dL (9-20); Calcium 9.1 mg/dL (8.4-10.2); Carbon Dioxide 27 mmol/L (22-32); Chloride 105 mmol/L (98-107); Cholesterol 196 mg/dL (140-199); Estimated Glomerular Filt Rate > 60 mL/min (>60); Globulin 2.7 g/dL (1.7-4.1); Glucose 106 mg/dL (70-99); HDL Cholesterol 65 mg/dL (40-60); HEMOLYSIS < 15 (0-50); Potassium 4.7 mmol/L (3.4-5.1); Sodium 138 mmol/L (137-145); Total Protein 6.7 g/dL (6.3-8.2); Triglycerides 79 mg/dL (35-150)
[2025-05-16 12:32] LABS: TSH w/ Reflex to FT4 2.74 uIU/mL (0.47-4.68)
[2025-05-16 12:51] LABS: Vitamin B12 622 pg/mL (239-931)
== END ==
PROVIDERS: PCP Family Medicine; Referring Provider Family Medicine; Visit Provider Family Medicine
DX: Z12.5 Encounter for screening for malignant neoplasm of prostate (principal); Z13.21 Encounter for screening for nutritional disorder; E04.1 Nontoxic single thyroid nodule; E78.00 Pure hypercholesterolemia, unspecified
CPT/HCPCS: 36415; 80053; 80061; 82607; 84443; 85025; G0103

== ENCOUNTER → 2025-05-17 09:10 | Outpatient (CLI) | payer MEDICARE, OTHER, SELFPAY ==
--- NOTE | 2025-05-17 09:11 | DI.US.S_ITS ---
PROCEDURE: US THYROID INDICATIONS: DIFFICULTY SWALLOWING AND VOICE CHANGES TECHNIQUE: Real-time scanning was performed of the thyroid gland, with image documentation. COMPARISON: [facility], US, US THYROID, 02/08/2021, 13:45. [facility], US, US THYROID, 12/23/2023, 11:18. FINDINGS: Thyroid: Right lobe measures 5.9 x 2 x 1.8 cm. Left lobe measures 6 x 2.4 x 2.2 cm. Isthmus is 0.4 cm thick. Echotexture is homogeneous. Nodule number: 1, previously the nodule #1. Location: Left inferior Size: 2.6 x 2.1 x 2.5 cm, previously 2.1 x 1.8 x 2.0 cm. Please note that the differences in measurement are likely secondary to technique performed following image acquisition by the reading radiologist. Composition: Solid Echogenicity: Isoechoic and hypoechoic Shape: wider than tall. Margins: Irregular Echogenic foci: None Total points: 4 ACR TI-RADS category: 4 Nodule number: 2 Location: Left mid Size: 1.5 by 1 x 1.1 cm, previously 1.5 x 1.3 x 1.1 cm. Composition: Solid Echogenicity: Hypoechoic Shape: wider than tall. Margins: Smooth Echogenic foci: None Total points: 4 ACR TI-RADS category: 4 IMPRESSION: Left inferior thyroid lobe 2.6 cm nodule is similar to slightly increased in size when compared to the prior exam, the measurements are likely artificially increased secondary to post Hoc measurement technique by the reading radiologist. This nodule has been previously sampled and again meets criteria for FNA however findings of sampling and clinical management should incorporate the prior pathological results. Given the overall similar size dating back to 02/08/2021, annular surveillance could be performed. Please note the measurements from today's exam include a smaller lobulation which is at the deep inferior aspect of the nodule, and has been intermittently included within the measurements over the past several thyroid ultrasounds. Stable appearance of the left mid thyroid lobe 1.5 cm nodule which also meets criteria for FNA, if this nodule has been previously sampled, recommend correlation with prior pathological results. ACR TI-RADS definitions and recommendations: TI-RADS 1 (benign): 0 points. FNA not needed. TI-RADS 2 (not suspicious): 2 points. FNA not needed. TI-RADS 3: 3 points. * FNA if 2.5 cm or larger, follow up if 1.5 cm or larger (at 1, 3, and 5 years). TI-RADS 4: 4-6 points. * FNA if 1.5 cm or larger, follow up if 1 cm or larger (at 1, 2, 3, and 5 years). TI-RADS 5: 7 points or more. * FNA if 1 cm or larger, follow up if 0.5 cm or larger (every year for 5 years). Dictated by: Abebe Baker M.D. on 05/19/2025 at 10:21 Approved by: Abebe Baker M.D. on 05/19/2025 at 10:47
== END ==
LOC: US 09:10
PROVIDERS: PCP Family Medicine; Referring Provider Family Medicine; Visit Provider Family Medicine
DX: E04.2 Nontoxic multinodular goiter (principal)
CPT/HCPCS: 76536